=== PATIENT | male | born 1955 | race Caucasian/White ===

== ENCOUNTER 2023-01-22 14:20 | Inpatient (IN) | payer MEDICARE ==
[2023-01-22 15:23] LABS: #Basophils 0.1 10x3/uL (0.0-0.2); #Monocytes 0.9 10x3/uL (0.0-1.1); %Basophils 0.6 % (0.0-2.0); %Eosinophils 0.1 % (0.0-6.0); %Lymphocytes 11.5 % (18.0-47.0); %Monocytes 9.8 % (0.0-10.0); %Neutrophils 77.6 % (40.0-75.0); Hemoglobin 14.4 g/dL (13.5-17.5); Mean Corpuscular HGB CONC 33.5 g/dL (32.0-36.0); Mean Corpuscular Hemoglobin 28.8 pg (27.0-33.0); Platelet Count 293 10x3/uL (150-450); RBC Distribution Width 13.5 % (11.5-14.5)
[2023-01-22 15:25] LABS: Analyzer IN Cardio CS ER; Base Excess (BEa) -4.8 mEq/L (-2.0 to +3.0); CO2 Tension 32.1 mmHg (35.0-45.0); Calcium, Ionized (arterial) 1.17 mmol/L (1.12-1.30); Carboxyhemoglobin (COHb) 0.2 gm% (0.0-3.0); Hematocrit-ABG 46 % (42.0-52.0); Hemoglobin (Hb) 15.5 g/dL (14.0-18.0); O2 Tension (PaO2), arterial 331.7 mmHg (> 80.0); Potassium - ABG Lab 4.74 mmol/L (3.70-5.30); Puncture Site RBA; pH, Arterial 7.389 (7.35-7.45)
[2023-01-22 15:27] LABS: ALT (SGPT) 108 U/L (8-55); AST (SGOT) 104 U/L (5-34); Albumin 3.7 g/dL (3.4-4.8); Alkaline Phosphatase 126 U/L (40-110); Anion Gap 20 mmol/L (10-20); BUN (Urea Nitrogen) 47 mg/dL (8.4-25.7); Bilirubin, Total 1.4 mg/dL (0.2-1.2); Calc. Creatinine Clearance 0 mL/min (70-130); Calcium 9.5 mg/dL (7.8-10.44); Carbon Dioxide 19 mmol/L (23-31); Chloride 91 mmol/L (98-107); Estimated GFR 27; Globulin 3.2 g/dL (2.4-3.5); Glucose 100 mg/dL (80-115); Potassium 5.3 mmol/L (3.5-5.1); Protein, Total 6.9 g/dL (5.8-8.1); Sodium 125 mmol/L (136-145)
[2023-01-22 15:29] LABS: ALV-art Gradient 198.575 mmHg (0-20)
[2023-01-22 15:35] LABS: Troponin I 0.377 ng/mL (< 0.028)
[2023-01-22] MEDS ORDERED: Communication Order-Pharmacy FS SCH ×2 (17:30→18:08)
[2023-01-22] MEDS ORDERED: DOBUTamine 500 mg/250 ml 250 ML IVPB SCH (17:30)
[2023-01-22] MEDS ORDERED: DOBUTamine 500 mg/250 ml 250 ML ONE (17:32)
[2023-01-22 17:43] VITALS: BMI 28.8
[2023-01-22] MEDS ORDERED: Furosemide 100 MG/10 ML VIAL SLOW IVP SCH (17:45)
[2023-01-22 17:46] LABS: Troponin I 0.446 ng/mL (< 0.028)
[2023-01-22] MEDS ORDERED: Aspirin 325 mg Enteric Coated Tablet PO SCH (18:15)
[2023-01-22 18:34] LABS: Hematocrit 41.6 % (38.8-50.0); Hemoglobin 14.6 g/dL (13.5-17.5); Platelet Count 254 10x3/uL (150-450)
[2023-01-22] MEDS ORDERED: Adenosine 6 MG/2 ML VIAL ONE (20:15)
[2023-01-22] MEDS ORDERED: Metoprolol Tartrate 5 MG/5 ML VIAL ONE (20:22)
[2023-01-22] MEDS ORDERED: Adenosine 6 MG/2 ML VIAL IVP SCH (20:30)
[2023-01-22] MEDS ORDERED: Digoxin 0.5 MG/2 ML AMP ONE (20:36)
[2023-01-22] MEDS ORDERED: Digoxin 0.5 MG/2 ML AMP SLOW IVP SCH ×2 (20:45→21:00)
[2023-01-22] MEDS ORDERED: Famotidine 20 MG TAB PO SCH (21:00)
[2023-01-22 21:06] LABS: Anion Gap 19 mmol/L (10-20); BUN (Urea Nitrogen) 46 mg/dL (8.4-25.7); Calc. Creatinine Clearance 41 mL/min (70-130); Calcium 9.3 mg/dL (7.8-10.44); Carbon Dioxide 20 mmol/L (23-31); Chloride 92 mmol/L (98-107); Estimated GFR 30; Glucose 58 mg/dL (80-115); Magnesium 1.5 mg/dL (1.6-2.6); Potassium 4.6 mmol/L (3.5-5.1); Sodium 126 mmol/L (136-145)
[2023-01-22] MEDS ORDERED: Magnesium 2 GM/50 ML(in water) 2 GM in Premix 1 BAG IVPB SCH (22:00)
[2023-01-22] MEDS ORDERED: Amiodarone In Dextrose 150 MG in Premix 1 BAG IVPB SCH (22:45)
[2023-01-22] MEDS: Amiodarone In Dextrose 200 ML IVPB SCH (23:12)
[2023-01-23] MEDS ORDERED: Digoxin 0.125 MG TAB PO SCH (02:30)
[2023-01-23] MEDS ORDERED: Metoprolol Tartrate 5 MG/5 ML VIAL IVP SCH (03:45)
[2023-01-23 04:10] LABS: ALT (SGPT) 100 U/L (8-55); AST (SGOT) 99 U/L (5-34); Albumin 3.3 g/dL (3.4-4.8); Alkaline Phosphatase 107 U/L (40-110); Anion Gap 17 mmol/L (10-20); BUN (Urea Nitrogen) 47 mg/dL (8.4-25.7); Bilirubin, Direct 0.7 mg/dL (0.1-0.3); Calc. Creatinine Clearance 45 mL/min (70-130); Calcium 9.1 mg/dL (7.8-10.44); Carbon Dioxide 19 mmol/L (23-31); Chloride 94 mmol/L (98-107); Cholesterol 83 mg/dl (< 200 Desired); Estimated GFR 34; Globulin 3.3 g/dL (2.4-3.5); Glucose 90 mg/dL (80-115); HDL Cholesterol 21 mg/dL (>60 Neg Risk); LDL Cholesterol, Calculated 48 mg/dL; Potassium 4.2 mmol/L (3.5-5.1); Protein, Total 6.6 g/dL (5.8-8.1); Sodium 126 mmol/L (136-145); Triglycerides 71 mg/dL (Less than 150)
[2023-01-23 04:17] LABS: INR-International Normal Ratio 1.3; PTT 30.7 sec (22.0-33.0); Prothrombin Time 13.4 sec (9.5-12.1)
[2023-01-23] MEDS: Amiodarone In Dextrose 200 ML IVPB SCH (05:22)
[2023-01-23] MEDS ORDERED: Furosemide 40 MG/4 ML VIAL SLOW IVP SCH ×2 (06:00→08:00)
[2023-01-23 07:32] LABS: Hep B Surf Ag Non-Reactive S/CO (NonReactive)
[2023-01-23 07:33] LABS: HBSAg Index 0.25 S/CO (0-0.99)
[2023-01-23] MEDS ORDERED: Carvedilol 3.125 MG TAB PO SCH (08:00)
[2023-01-23] MEDS ORDERED: Adenosine 6 MG/2 ML VIAL ONE (08:45)
[2023-01-23] MEDS ORDERED: Lidocaine 1% (PF) 30 ML VIAL ONE (08:45)
[2023-01-23] MEDS ORDERED: Heparin 10,000 UNITS/ 10 ML VIAL ONE ×2 (08:45→10:58)
[2023-01-23] MEDS ORDERED: Nitroglycerin 50 MG/250 ML BOT 250 ML ONE (08:45)
[2023-01-23] MEDS ORDERED: Midazolam HCl 2 mg/2 ml Vial ONE (08:46)
[2023-01-23] MEDS ORDERED: fentaNYL 50 mcg/mL 1 mL Vial ONE ×2 (08:46→10:14)
[2023-01-23] MEDS ORDERED: Aspirin Chewable 81 MG TAB PO SCH (09:00)
[2023-01-23] MEDS ORDERED: Metoprolol Tartrate 25 MG TAB PO SCH ×2 (09:00)
[2023-01-23] MEDS ORDERED: Digoxin 0.25 MG TAB PO SCH (09:00)
[2023-01-23] MEDS ORDERED: Verapamil 5 MG/2 ML VIAL ONE (09:35)
[2023-01-23] MEDS ORDERED: Atropine Sulfate 1 mg/1 ml Vial ONE (09:47)
[2023-01-23] MEDS ORDERED: Heparin 25,000 units/D5W 500 ML ONE (10:51)
[2023-01-23] MEDS ORDERED: Heparin 25,000 units/D5W 500 ML IVPB SCH (11:45)
[2023-01-23] MEDS ORDERED: Heparin 10,000 UNITS/ 10 ML VIAL SLOW IVP SCH ×2 (11:45→14:00)
[2023-01-23] MEDS ORDERED: Iopamidol 300 61% 100 ML VIAL FS ONE (12:20)
[2023-01-23 13:07] LABS: Hemoglobin 13.5 g/dL (13.5-17.5); Platelet Count 249 10x3/uL (150-450)
[2023-01-23 13:10] VITALS: BP 131/112; TEMP 97.9
[2023-01-23] MEDS ORDERED: Sodium Chloride 0.9% 500 ML IV SCH ×2 (13:15→13:45)
[2023-01-23] MEDS ORDERED: Morphine 2 MG/ML VIAL SLOW IVP PRN (13:15)
[2023-01-23] MEDS ORDERED: ALPRAZolam 0.5 MG TAB PO PRN (13:15)
[2023-01-23] MEDS ORDERED: Morphine 4 MG/ML VIAL SLOW IVP PRN (13:15)
[2023-01-23] MEDS ORDERED: Sodium Bicarbonate 25 MEQ in Dextrose 5% in Water 1,000 ML FS SCH (13:30)
[2023-01-23 13:38] LABS: PTT Greater than 139.0 sec (22.0-33.0)
[2023-01-23] MEDS ORDERED: Heparin 25,000 units/D5W 500 ML IV SCH (13:45)
[2023-01-23 14:50] LABS: HBCM Index 0.07 S/CO (0-0.79); Hep A IgM AB Non-Reactive S/CO (NonReactive); Hep A IgM S/CO 0.13 S/CO (0-0.79); Hep C IgG Ab Non-Reactive S/CO (NonReactive); Hep C Index 0.47 S/CO (0-0.79); Hepatitis B Core IgM Abs Non-Reactive S/CO (NonReactive)
[2023-01-23] MEDS ORDERED: Furosemide 100 MG/10 ML VIAL SLOW IVP SCH (15:00)
[2023-01-24] MEDS ORDERED: Furosemide 40 MG/4 ML VIAL SLOW IVP SCH (06:00)
[2023-01-27 13:44] LABS: ANA Symphony (Qualitative) Negative (Negative); ANA Symphony (Quantitative) 0.1 Ratio (< 0.7 Negative); dsDNA IgG Antibody 1.1 IU/mL (<10 Negative)
== END 2023-01-23 16:22 | disposition short-term general hospital (02) | DRG 215 ==
LOC: CSHERS 14:20 → CSHIMCU 16:15
PROVIDERS: ADMIT Hospitalist; ATTEND Hospitalist
PROC: 4A033R1 Measurement of Arterial Saturation, Peripheral, Percutaneous Approach (ICD-10-PCS; 2023-01-22)
PROC: 5A09457 Assistance with Respiratory Ventilation, 24-96 Consecutive Hours, Continuous Positive Airway Pressure (ICD-10-PCS; 2023-01-22)
PROC: 02HW3RZ Insertion of Short-term External Heart Assist System into Thoracic Aorta, Descending, Percutaneous Approach (ICD-10-PCS; principal; 2023-01-23)
PROC: 5A0221D Assistance with Cardiac Output using Impeller Pump, Continuous (ICD-10-PCS; 2023-01-23)
PROC: 4A023N7 Measurement of Cardiac Sampling and Pressure, Left Heart, Percutaneous Approach (ICD-10-PCS; 2023-01-23)
PROC: B2151ZZ Fluoroscopy of Left Heart using Low Osmolar Contrast (ICD-10-PCS; 2023-01-23)
PROC: B2111ZZ Fluoroscopy of Multiple Coronary Arteries using Low Osmolar Contrast (ICD-10-PCS; 2023-01-23)
PROC: 06HY33Z Insertion of Infusion Device into Lower Vein, Percutaneous Approach (ICD-10-PCS; 2023-01-23)
PROC: 047J3ZZ Dilation of Left External Iliac Artery, Percutaneous Approach (ICD-10-PCS; 2023-01-23)
DX: I13.0 Hypertensive heart and chronic kidney disease with heart failure and stage 1 through stage 4 chronic kidney disease, or unspecified chronic kidney disease (principal); I50.21 Acute systolic (congestive) heart failure; I21.4 Non-ST elevation (NSTEMI) myocardial infarction; J96.01 Acute respiratory failure with hypoxia; K72.00 Acute and subacute hepatic failure without coma; R57.0 Cardiogenic shock; E87.1 Hypo-osmolality and hyponatremia; N17.9 Acute kidney failure, unspecified; I25.10 Atherosclerotic heart disease of native coronary artery without angina pectoris; N18.9 Chronic kidney disease, unspecified; E11.22 Type 2 diabetes mellitus with diabetic chronic kidney disease; F10.90 Alcohol use, unspecified, uncomplicated; Z11.52 Encounter for screening for COVID-19; Z79.899 Other long term (current) drug therapy; Z90.49 Acquired absence of other specified parts of digestive tract; Z90.89 Acquired absence of other organs; Z98.890 Other specified postprocedural states; Z87.891 Personal history of nicotine dependence; Z80.1 Family history of malignant neoplasm of trachea, bronchus and lung; Z80.0 Family history of malignant neoplasm of digestive organs; Z82.49 Family history of ischemic heart disease and other diseases of the circulatory system; E78.5 Hyperlipidemia, unspecified; E11.51 Type 2 diabetes mellitus with diabetic peripheral angiopathy without gangrene; K21.9 Gastro-esophageal reflux disease without esophagitis; I48.0 Paroxysmal atrial fibrillation; I25.5 Ischemic cardiomyopathy
CPT/HCPCS: 33990; 36415; 36556; 36600; 37220; 71045; 75710; 76705; 80053; 80061; 80074; 80076; 82805; 83735; 84443; 84484; 85014; 85018; 85025; 85049; 85347; 85610; 85730; 86015; 86038; 86225; 93005; 93306; 93459; 94760; 94762; 99152; 99153; C1725; C1769; C1887; C1894; G0278; J0153; J0283; J0461; J1160; J1250; J1644; J1940; J2001; J2250; J3010; J3475; J7070; Q9967